=== PATIENT | female | born 1940 | race Caucasian/White ===

== ENCOUNTER → 2018-05-20 | Outpatient (CLI) | payer OTHER, MEDICARE ==
[~2018-05-20] VITALS: Ht 160 cm; Wt 84.4 kg
[~2018-05-20] MED LIST: COREG25 MG PO; EZETIMIBE10 MG PO; FISH OIL 1,001000 M2 PO; KLOR-CON M2020 MEQ PO; LANSOPRAZOLE15 MG PO; LOSARTAN POTASS50 MG PO; MAGNESIUM400 MG PO; NEURONTIN 300300 M1 PO; SIMVASTATIN40 MG PO; SPIRONOLACTONE25 M1 PO; SYNTHROID50 MCG PO; TRAMADOL 50 MG50 MG PO; ZOLOFT50 MG PO
--- NOTE | ~2018-05-20 | P ---
[facility] [place] [address] PROCEDURE REPORT Name: PALOMA ROCHE Room #: REG [facility]#: [id number] Admission: 05/20/18 Attend Phys: Darrius Garcia MD Discharge: Date of : 36 Report #: [id number] THIS REPORT FOR: //name// CC: [place] Garcia DATE OF SERVICE: 05/20/2018 BRIEF HISTORY: The patient is a 77-year-old woman for high risk screening colonoscopy. Both parents had colon cancer and she has had colon adenomas in the past. PREOPERATIVE DIAGNOSIS: Family history of colon cancer. POSTOPERATIVE DIAGNOSES: 1. Mild sigmoid diverticulosis coli. 2. Small internal hemorrhoids. MEDICATIONS: Deep sedation with propofol per anesthesia. SPECIMEN: None. ESTIMATED BLOOD LOSS: None. PROCEDURE: Colonoscopy to cecum and terminal ileum. FINDINGS: Prior to propofol sedation, procedure of colonoscopy was discussed with the patient as well as potential risks, benefits and complications. She indicates she understands and desires to proceed. DESCRIPTION OF PROCEDURE: With the patient in left lateral decubitus position, digital examination was completed, which revealed no abnormalities. Subsequently, the Olympus video colonoscope was introduced in the rectum, advanced under direct vision to the cecum. Done with minimal difficulty. The cecum was identified by the ileocecal valve and the appendiceal orifice. I was able to visualize the distal segment of terminal ileum, which was inspected and noted to be unremarkable. At that point, the scope inserted and careful circumferential views were obtained including retroflexing the scope in the ascending colon. There were some limitations of the prep. There were some residuals, adherent stool material in the proximal colon. We irrigated and cleaned as well as possible, but not all of it removed. A fairly good prep was obtained with cleanup but due to some residual material, small lesion could have been overlooked. The prep was better in the distal colon. Upon withdrawal of the scope, the mucosa was within normal limits, normal vascular pattern, normal light reflex. No neoplastic lesions were seen. No polyps were identified. [address] [address] PROCEDURE REPORT Name: MELCHORPALOMAMELISA RICH Room #: [facility] [id number] Admission: 05/20/18 Attend Phys: Darrius Garcia MD Discharge: Date of : 36 Report #: [id number] few diverticula were seen in the sigmoid colon. Scope was withdrawn in the rectum. No abnormalities were seen. Upon retroflexion, small hemorrhoids were seen. Scope was withdrawn. The patient tolerated the procedure well. CONDITION OF THE PATIENT UPON DISCHARGE: Following procedure, the patient drowsy, arousable and conversant and will be discharged home when fully ambulatory. INSTRUCTIONS TO THE PATIENT AND FAMILY AT THE TIME OF DISCHARGE: No neoplastic lesions seen today. Due to her strong family history, have her return in 3 years for high risk screening colonoscopy. Last colonoscopy was 3 years ago. Withdrawal time from cecum was 14 minutes 15 seconds. By: [id number] Darrius Garcia MD /nt
== END | disposition home or self-care (01) ==
LOC: GI 08:01
DX: Z12.11 Encounter for screening for malignant neoplasm of colon (principal); Z80.0 Family history of malignant neoplasm of digestive organs; Z86.010 Personal history of colon polyps; K57.30 Diverticulosis of large intestine without perforation or abscess without bleeding; K64.8 Other hemorrhoids; K64.9 Unspecified hemorrhoids; K21.9 Gastro-esophageal reflux disease without esophagitis; I10 Essential (primary) hypertension; I25.2 Old myocardial infarction; E78.00 Pure hypercholesterolemia, unspecified; F32.9 Major depressive disorder, single episode, unspecified; Z98.890 Other specified postprocedural states; Z95.0 Presence of cardiac pacemaker; Z95.5 Presence of coronary angioplasty implant and graft; Z79.899 Other long term (current) drug therapy; Z88.8 Allergy status to other drugs, medicaments and biological substances
CPT/HCPCS: 62110; 62900